=== PATIENT | female | born 1995 | race Caucasian/White ===

== ENCOUNTER 2019-03-02 01:42 | Emergency (ER) | payer SELFPAY ==
[2019-03-02 02:00] VITALS: BP 170/95
[2019-03-02 02:20] LABS: Basophils # (Auto) 0.1 K/mm3 (0.0-0.1); Basophils % (Auto) 0.5 % (0.0-1.8); Eosinophils # (Auto) 0.1 K/mm3 (0.0-0.4); Hematocrit 46.7 % (30.3-42.9); Hemoglobin 15.8 gm/dl (10.1-14.3); Lymphocytes # (Auto) 2.9 K/mm3 (1.2-5.4); Lymphocytes % (Auto) 25.2 % (13.4-35.0); Mean Corpuscular HGB Conc 34 % (30-34); Mean Corpuscular Volume 87 fl (79-97); Monocytes % (Auto) 8.6 % (0.0-7.3); Platelet Count 192 K/mm3 (140-440); Red Blood Count 5.38 M/mm3 (3.65-5.03); Red Cell Distribution Width 13.6 % (13.2-15.2)
[2019-03-02 02:44] LABS: Alanine Aminotransferase 70 units/L (7-56); Albumin 4.4 g/dL (3.9-5); BUN/Creatinine Ratio 6; Blood Urea Nitrogen 3 mg/dL (7-17); Hemolysis Index 11
[2019-03-02 04:25] LABS: Bacteria,Urine 1+ /HPF (Negative); Bilirubin,Urine NEG (Negative); Blood,Urine MOD (Negative); Color,Urine Yellow (Yellow); Urobilinogen,Urine < 2.0 mg/dL (<2.0)
[2019-03-02 04:33] LABS: WBC,Urine > 182.0 /HPF (0.0-6.0)
[2019-03-02] MEDS ORDERED: KETOROLAC 30 MG/1 ML INJ IV ONE (04:57)
[2019-03-02] MEDS ORDERED: ONDANSETRON 4 MG/2 ML INJ IV ONE (04:57)
[2019-03-02] MEDS ORDERED: SODIUM CHLORIDE 0.9% 1000 ML 1,000 ML IV ONE (04:57)
--- NOTE | 2019-03-02 05:38 | Cat Scan Report ---
CT ABDOMEN AND PELVIS WITHOUT CONTRAST INDICATION: Right flank pain. Gross hematuria. COMPARISON: No relevant prior imaging study available. TECHNIQUE: Axial, coronal and sagittal CT imaging of the abdomen and pelvis was performed without co ntrast. Lack of intravenous contrast limits evaluation of the vascular and solid organs. All CT sca ns at this location are performed using CT dose reduction for ALARA by means of automated exposure co ntrol. FINDINGS: LOWER CHEST: No significant abnormality. LIVER: No significant abnormality. BILIARY: No significant abnormality. PANCREAS: No significant abnormality. SPLEEN: No significant abnormality. ADRENALS: No significant abnormality. KIDNEYS AND URETERS: No significant abnormality. GI TRACT: No significant abnormality of the stomach, small bowel or colon. Unremarkable appendix. PERITONEUM: A trace amount of free fluid along the pelvis is likely physiologic. No free air. No flui d collection. LYMPH NODES: No significant adenopathy. VASCULATURE: No significant abnormality. URINARY BLADDER: No significant abnormality. REPRODUCTIVE ORGANS: No significant abnormality. ADDITIONAL FINDINGS: None. SKELETAL SYSTEM: No significant abnormality. IMPRESSION: No acute abnormality of the abdomen or pelvis. Signer Name: Justo Caceres MD Signed: 03/02/2019 5:34 AM Workstation Name: [id number]
[2019-03-02] MEDS ORDERED: LIDOCAINE-MPF (1%) 10 MG/1 ML VIAL 5 ML INFILTRATI ONE (05:48)
--- NOTE | 2019-03-02 05:51 | Emergency Department Report ---
ED Female HPI - General Chief complaint: Abdominal Pain Stated complaint: VOMITING UP BLOOD Time Seen by Provider: 03/02/19 04:53 Source: patient Mode of arrival: Ambulatory Limitations: No Limitations - History of Present Illness Initial comments: Mrs. Levin is a 23-year-old female who presents with dysuria frequency flank pain with nausea vomiting 3 days. pt denies fever , does endorse malaise and chills, dysuria, freqency, anc urgency. pt has hx of frequent UTI MD Complaint: dysuria Onset/Timin -: days(s) Radiation: L flank Severity: moderate Severity scale (0 -10): 4 Quality: aching Consistency: intermittent Improves with: none Worsens with: urination Are you Now?: No Last Menstrual Period: 02/27/19 EDC: 12/04/19 Associated Symptoms: abdominal pain, nausea/vomiting, fever/chills, dysuria. denies: vaginal discharge, hematuria, syncope - Related Data Sexually active: Yes Previous Rx's Medication Instructions Recorded Last Taken Type Cyclobenzaprine [Flexeril] 10 mg PO TID PRN #15 tablet 11/24/12 Unknown Rx Hydrocodone Bit/Acetaminophen 1 each PO Q4-6H #20 tablet 11/24/12 Unknown Rx [Lortab 5-500 Tablet] Ibuprofen [Motrin 800 MG tab] 800 mg PO Q8HR PRN #30 tablet 03/02/19 Unknown Rx Nitrofurantoin [place]/M-Cryst 100 mg PO BID 7 Days #14 capsule 03/02/19 Unknown Rx [Macrobid CAP] Ondansetron [Zofran Odt] 4 mg PO Q8HR PRN #12 tab.rapdis 03/02/19 Unknown Rx Allergies Allergy/AdvReac Type Severity Reaction Status Date / Time No Known Allergies Allergy Verified 03/02/19 01:52 ED Review of Systems ROS: Stated complaint: VOMITING UP BLOOD Other details as noted in HPI Constitutional: denies: chills, fever Eyes: denies: eye pain, eye discharge, vision change ENT: denies: ear pain, throat pain Respiratory: denies: cough, shortness of breath, wheezing Cardiovascular: denies: chest pain, palpitations Endocrine: no symptoms reported Gastrointestinal: abdominal pain, nausea, vomiting. denies: diarrhea, melena Genitourinary: urgency, dysuria, frequency. denies: hematuria, discharge Musculoskeletal: back pain (left flank ) Skin: denies: rash, lesions Neurological: denies: headache, weakness, paresthesias Psychiatric: denies: anxiety, depression Hematological/Lymphatic: denies: easy bleeding, easy bruising ED Past Medical Hx - Past Medical History Previous Medical History?: No - Surgical History Past Surgical History?: No - Social History Smoking Status: Current Every Day Smoker Substance Use Type: Marijuana - Medications Home Medications: Home Medications Medication Instructions Recorded Confirmed Last Taken Type Cyclobenzaprine [Flexeril] 10 mg PO TID PRN #15 tablet 11/24/12 Unknown Rx Hydrocodone Bit/Acetaminophen 1 each PO Q4-6H #20 tablet 11/24/12 Unknown Rx [Lortab 5-500 Tablet] Ibuprofen [Motrin 800 MG tab] 800 mg PO Q8HR PRN #30 tablet 03/02/19 Unknown Rx Nitrofurantoin [place]/M-Cryst 100 mg PO BID 7 Days #14 capsule 03/02/19 Unknown Rx [Macrobid CAP] Ondansetron [Zofran Odt] 4 mg PO Q8HR PRN #12 tab.rapdis 03/02/19 Unknown Rx ED Physical Exam - General Limitations: No Limitations General appearance: alert, in no apparent distress - Head Head exam: Present: atraumatic, normocephalic - Eye Eye exam: Present: normal appearance - ENT ENT exam: Present: mucous membranes moist - Neck Neck exam: Present: normal inspection - Respiratory Respiratory exam: Present: normal lung sounds bilaterally. Absent: respiratory distress - Cardiovascular Cardiovascular Exam: Present: regular rate, normal rhythm, normal heart sounds. Absent: systolic murmur, diastolic murmur, rubs, gallop - GI/Abdominal GI/Abdominal exam: Present: soft, normal bowel sounds. Absent: distended, tenderness, guarding, rebound, rigid, bruit, hernia - Rectal Rectal exam: Present: deferred - External exam: Present: other (deferred ) - Extremities Exam Extremities exam: Present: normal inspection, full ROM, normal capillary refill. Absent: tenderness - Back Exam Back exam: Present: normal inspection, full ROM, CVA tenderness (L). Absent: tenderness, CVA tenderness (R), rash noted - Neurological Exam Neurological exam: Present: alert, oriented X3, CN II-XII intact, normal gait - Psychiatric Psychiatric exam: Present: normal affect, normal mood - Skin Skin exam: Present: warm, dry, intact, normal color. Absent: rash ED Course Vital Signs 03/02/19 01:54 Temperature 97.8 F Pulse Rate 94 H Respiratory 14 Rate Blood Pressure 170/95 O2 Sat by Pulse 98 Oximetry ED Medical Decision Making - Lab Data Result diagrams: 03/02/19 02:09 03/02/19 02:09 Labs 03/02/19 03/02/19 03/02/19 02:09 02:09 02:09 WBC 11.7 H RBC 5.38 H Hgb 15.8 H Hct 46.7 H MCV 87 MCH 29 MCHC 34 RDW 13.6 Plt Count 192 Lymph % (Auto) 25.2 [place] % (Auto) 8.6 H Eos % (Auto) 1.0 Baso % (Auto) 0.5 Lymph # 2.9 [place] # 1.0 H Eos # 0.1 Baso # 0.1 Seg Neutrophils % 64.7 Seg Neutrophils # 7.6 Sodium 139 Potassium 3.4 L Chloride 102.0 Carbon Dioxide 25 Anion Gap 15 BUN 3 L Creatinine 0.5 L Estimated GFR > 60 BUN/Creatinine Ratio 6 Glucose 118 H Calcium 11.0 H Total Bilirubin 0.50 AST 38 ALT 70 H Alkaline Phosphatase 86 Total Protein 7.7 Albumin 4.4 Albumin/Globulin Ratio 1.3 HCG, Qual Negative Urine Color Urine Turbidity Urine pH Ur Specific [place] Urine Protein Urine Glucose (UA) Urine Ketones Urine Blood Urine Nitrite Urine Bilirubin Urine Urobilinogen Ur Leukocyte Esterase Urine WBC (Auto) Urine RBC (Auto) U Epithel Cells (Auto) Urine Bacteria (Auto) 03/02/19 03:55 WBC RBC Hgb Hct MCV MCH MCHC RDW Plt Count Lymph % (Auto) [place] % (Auto) Eos % (Auto) Baso % (Auto) Lymph # [place] # Eos # Baso # Seg Neutrophils % Seg Neutrophils # Sodium Potassium Chloride Carbon Dioxide Anion Gap BUN Creatinine Estimated GFR BUN/Creatinine Ratio Glucose Calcium Total Bilirubin AST ALT Alkaline Phosphatase Total Protein Albumin Albumin/Globulin Ratio HCG, Qual Urine Color Yellow Urine Turbidity Turbid Urine pH 8.0 H Ur Specific [place] 1.001 L Urine Protein 100 mg/dl Urine Glucose (UA) Neg Urine Ketones Neg Urine Blood Mod Urine Nitrite Neg Urine Bilirubin Neg Urine Urobilinogen < 2.0 Ur Leukocyte Esterase Lg Urine WBC (Auto) > 182.0 H Urine RBC (Auto) 70.0 U Epithel Cells (Auto) 49.0 H Urine Bacteria (Auto) 1+ - Radiology Data Radiology results: report reviewed, image reviewed Ordering Physician: DARRYL WORKMAN NP Date of Service: 03/02/19 Procedure(s): CT abdomen pelvis wo con Accession Number(s): [id number] cc: DARRYL WORKMAN NP CT ABDOMEN AND PELVIS WITHOUT CONTRAST INDICATION: Right flank pain. Gross hematuria. COMPARISON: No relevant prior imaging study available. TECHNIQUE: Axial, coronal and sagittal CT imaging of the abdomen and pelvis was performed without contrast. Lack of intravenous contrast limits evaluation of the vascular and solid organs. All CT scans at this location are performed using CT dose reduction for ALARA by means of automated exposure control. FINDINGS: LOWER CHEST: No significant abnormality. LIVER: No significant abnormality. BILIARY: No significant abnormality. PANCREAS: No significant abnormality. SPLEEN: No significant abnormality. ADRENALS: No significant abnormality. KIDNEYS AND URETERS: No significant abnormality. GI TRACT: No significant abnormality of the stomach, small bowel or colon. Unremarkable appendix. PERITONEUM: A trace amount of free fluid along the pelvis is likely physiologic. No free air. No fluid collection. LYMPH NODES: No significant adenopathy. VASCULATURE: No significant abnormality. URINARY BLADDER: No significant abnormality. REPRODUCTIVE ORGANS: No significant abnormality. ADDITIONAL FINDINGS: None. SKELETAL SYSTEM: No significant abnormality. IMPRESSION: No acute abnormality of the abdomen or pelvis. Signer Name: Justo Caceres MD Signed: 03/02/2019 5:34 AM Workstation Name: [id number] Transcribed By: GILDARDO Dictated By: Justo Caceres MD Electronically Authenticated By: Justo Caceres MD Signed Date/Time: 03/02/1934 DD/ 0 TD/TT: - Medical Decision Making ct abd pelvis normal no hydro , pyelonephritis, no renal stones, will tx for UTI, , plan rocephin, dc to home with rx for macrobid, ibuprofen, zofran, pt will followup with pcp in 2-3 sdays, and or return to ed if symptoms worsen. Critical care attestation.: If time is entered above; I have spent that time in minutes in the direct care of this critically ill patient, excluding procedure time. ED Disposition Clinical Impression: UTI (urinary tract infection) Qualifiers: Urinary tract infection type: acute cystitis Hematuria presence: without hematuria Qualified Code(s): N30.00 - Acute cystitis without hematuria Disposition: TO HOME OR SELFCARE Is pt being admited?: No Does the pt Need Aspirin: No Condition: Stable Instructions: Urinary Tract Infection in Women (ED) Prescriptions: Nitrofurantoin [place]/M-Cryst [Macrobid CAP] 100 mg PO BID 7 Days #14 capsule Ibuprofen [Motrin 800 MG tab] 800 mg PO Q8HR PRN #30 tablet PRN Reason: pain Ondansetron [Zofran Odt] 4 mg PO Q8HR PRN #12 tab.rapdis PRN Reason: Nausea And Vomiting Referrals: [facility] [Outside] - 3-5 Days Forms: Work/School Release Form(ED) Time of Disposition: 06:02
== END 2019-03-02 06:23 | disposition home or self-care (01) ==
LOC: ED 01:42
DX: N39.0 Urinary tract infection, site not specified (principal)
CPT/HCPCS: 36415; 74176; 80053; 81001; 84703; 85025; 96365; 96375; 99284; J0696; J1885; J2405; J7030